=== PATIENT | female | born 1995 | race Caucasian/White ===

== ENCOUNTER 2021-03-01 17:31 | Observation (INO) | payer BC, OTHER, MEDICAID, SELFPAY ==
[2021-03-01 17:49] VITALS: BP 120/66; PULSE 96
[2021-03-01 17:56] VITALS: BMI 35.9
--- NOTE | 2021-03-01 17:57 | OBADM ---
This patient, Shanda Reyes, admitted to the OB room [facility] for observation. Patient/family oriented to hospital policies and general routines including ID bracelet, bed and alarms, visiting hours, pain management, procedures, bathroom and other care routines, personal items, smoking policy, room service/diet, and visiting hours. Patient/Family are encouraged to report perceived risks to care and to ask questions if they do not understand what they are told or what they should do.
[2021-03-01 18:45] VITALS: TEMP 36.6
[2021-03-01 18:57] VITALS: BP 110/69; PULSE 80
[2021-03-01] MEDS: DEXTROSE 5%/LACTATED RINGERS 1,000 ML 999 ML IV CONT (18:59)
[2021-03-01 19:06] LABS: Hemoglobin 11.6 g/dL (12.0-15.0); Mean Corpuscular HGB Conc 32.2 g/dl (32-36); Mean Corpuscular Hemoglobin 30.4 pg (26-34); Mean Corpuscular Volume 94.2 fl (80-100); Platelet Count Result 251 k/mm3 (150-375); Red Blood Count 3.82 M/mm3 (4.2-5.4); Red Cell Distribution Width 12.8 % (11.5-14.5); White Blood Count 11.6 K/mm3 (4.5-10.0)
[2021-03-01 19:12] LABS: Add Urine Microscopic? YES; Appearance Urine Cloudy (Clear); Bacteria Urine 1+ /hpf; Bilirubin Urine Negative (Negative); Blood Urine Negative (Negative); Color Urine Yellow (Yellow); Glucose Urine UA Negative (Negative); Ketones Urine Negative (Negative); Leukocyte Esterase Ur Trace LEU/UL (NEGATIVE); Mucus Urine Few /lpf; Nitrate Urine Negative (Negative); Protein Urine 1+ mg/dL (Negative); RBC Urine 0-2 /hpf (0-2); Specific Grav Ur 1.021 (1.001-1.035); Squamous Epithelial Cell Urine Moderate /hpf (Few); Urobilinogen Urine Negative mg/dL (<2.0); WBC Urine 0-3 /hpf (0-3)
[2021-03-01 19:26] LABS: Alanine Aminotransferase 18 U/L (4-35); Albumin Level 3.7 g/dL (3.5-5.1); Alkaline Phosphatase 64 U/L (38-126); Anion Gap 9 mmol/L (8-16); Aspartate Amino Transferase 20 U/L (14-36); Bilirubin,Total 0.3 mg/dL (0.2-1.3); Blood Urea Nitrogen 6 mg/dL (7-17); Calcium 9.7 mg/dL (8.4-10.2); Carbon Dioxide 22 mmol/L (22-30); Chloride 106 mmol/L (98-107); Estimated CRCL calculation 160 ml/min; Estimated Glomerular Filt Rate > 60; Glucose 73 mg/dL (65-105); Potassium 3.9 mmol/L (3.4-5.0); Sodium 137 mmol/L (137-145)
--- NOTE | 2021-03-03 07:53 | P.PNOB_ITS ---
OB - Triage/Final Diagnosis Visit Information Date of evaluation: 03/01/21 Reason for evaluation: threatened labor Comments/Additional reasons for admission: I have assessed the risk for this patient, Shanda Reyes, and determined that she would benefit from o bservation care. Evaluation Laboratory results: Laboratory Tests 03/01/21 03/01/21 03/01/21 18:55 18:55 18:55 WBC 11.6 H RBC 3.82 L Hgb 11.6 L Hct 36.0 L MCV 94.2 MCH 30.4 MCHC 32.2 RDW 12.8 Plt Count 251 MPV 11.0 H Sodium 137 Potassium 3.9 Chloride 106 Carbon Dioxide 22 Anion Gap 9 BUN 6 L Creatinine 0.50 L Estim Creat Clear Calc 160 Estimated GFR > 60 Glucose 73 Calcium 9.7 Total Bilirubin 0.3 AST 20 ALT 18 Alkaline Phosphatase 64 Total Protein 7.0 Albumin 3.7 Urine Color Yellow Urine Appearance Cloudy H Urine pH 6.0 Ur Specific [place] 1.021 Urine Protein 1+ H Urine Glucose (UA) Negative Urine Ketones Negative Ur Blood (Man) Negative Urine Nitrate Negative Urine Bilirubin Negative Urine Urobilinogen Negative Ur Leukocyte Esterase Trace H Urine RBC 0-2 Urine WBC 0-3 Ur Squamous Epith Cells Moderate H Urine Bacteria 1+ H Urine Mucus Few H
== END 2021-03-01 21:02 | disposition home or self-care (01) ==
PROVIDERS: Advanced Practice Midwife; Admitting Provider Obstetrics & Gynecology; Visit Provider Obstetrics & Gynecology
DX: O47.03 False labor before 37 completed weeks of gestation, third trimester (principal); Z3A.21 21 weeks gestation of pregnancy
CPT/HCPCS: 36415; 80053; 81001; 85027; 87086; 87088; G0378; G0379; J7121

== ENCOUNTER 2021-04-19 10:38 | Outpatient (RCR) | payer BC, OTHER, MEDICAID, SELFPAY ==
[2021-04-19 12:32] LABS: Hematocrit 33.5 % (37.0-47.0); Hemoglobin 11.1 g/dL (12.0-15.0)
[2021-04-19 12:46] LABS: Glucose 1 Hour PP 50gm Dose 161 mg/dL
[2021-04-19 13:26] LABS: HIV 1/2 Ab P24 Ag Result Negative (Negative)
[2021-04-19] MEDS: RHO(D) IMMUNE GLOBULIN 300 MCG/2 ML SYRINGE IM (17:28)
[2021-04-20 09:06] LABS: Rapid Plasma Reagin Non-Reactive (NonReactive)
== END 2021-07-18 23:59 | disposition home or self-care (01) ==
LOC: ANHLAB 10:38
PROVIDERS: Visit Provider Obstetrics & Gynecology
DX: Z29.13 Encounter for prophylactic Rho(D) immune globulin (principal); Z11.4 Encounter for screening for human immunodeficiency virus [HIV]; O36.0130 Maternal care for anti-D [Rh] antibodies, third trimester, not applicable or unspecified; Z3A.00 Weeks of gestation of pregnancy not specified
CPT/HCPCS: 36415; 81479; 82947; 85014; 85018; 85461; 86592; 86703; 86850; 86870; 86880; 86900; 86901; 86902; 86971; 90384; 96372; G0432; J2790

== ENCOUNTER 2021-05-01 13:26 | Observation (INO) | payer BC, OTHER, MEDICAID, SELFPAY ==
[2021-05-01 13:51] VITALS: BP 114/69; PULSE 107
[2021-05-01 14:00] VITALS: BP 114/74; PULSE 115
[2021-05-01 14:15] VITALS: BP 103/67; PULSE 107
[2021-05-01 14:31] VITALS: BMI 36.5
--- NOTE | 2021-05-21 10:07 | PM.OBTRLD ---
OB - Triage/Final Diagnosis Visit Information Comments/Additional reasons for admission: I have assessed the risk for this patient, Shanda Reyes, and determined that she would benefit from observation care. Final Diagnosis (1) False labor: Code(s): O47.9 - False labor, unspecified Status: Acute
== END 2021-05-01 14:42 | disposition home or self-care (01) ==
PROVIDERS: Admitting Provider Obstetrics & Gynecology; Visit Provider Obstetrics & Gynecology
DX: O47.03 False labor before 37 completed weeks of gestation, third trimester (principal); Z3A.30 30 weeks gestation of pregnancy
CPT/HCPCS: 84112; G0378; G0379

== ENCOUNTER 2021-05-24 14:07 | Outpatient (CLI) | payer BC, OTHER, MEDICAID, SELFPAY ==
[2021-05-24] VITALS (7 sets, daily range): BP systolic 107–114; BP diastolic 66–74; PULSE 96–113; RESP 16; TEMP 36.8
--- NOTE | 2021-05-24 15:19 | PC.NURSE ---
Lissa Quintana CNM returned page and informed of pt's symptoms, BP, reactive NST. Orders received.
[2021-05-24 15:58] LABS: Basophils Percent Auto 0.1 % (0.2-1.2); Eosinophils Percent Auto 0.1 % (0-4.4); Hematocrit 30.5 % (37.0-47.0); Immature Granulocyte Absolute 0.03 K/mm3 (0.00-0.031); Immature Granulocyte Percent A 0.3 % (0-0.5); Lymphocytes Absolute Auto 1.75 K/mm3 (0.9-3.2); Lymphocytes Percent Auto 17.5 % (18.3-44.2); Mean Corpuscular HGB Conc 32.8 g/dl (32-36); Mean Corpuscular Hemoglobin 29.9 pg (26-34); Mean Corpuscular Volume 91.3 fl (80-100); Mean Platelet Volume 10.5 fl (7.4-10.4); Monocytes Absolute Auto 0.6 K/mm3 (0.1-0.6); Monocytes Percent Auto 6.4 % (2.6-8.5); Neutrophils Absolute Auto 7.5 K/mm3 (1.3-6.7); Neutrophils Percent Auto 75.6 % (45.5-73.1); Platelet Count Result 234 k/mm3 (150-375); Red Blood Count 3.34 M/mm3 (4.2-5.4); Red Cell Distribution Width 12.3 % (11.5-14.5)
[2021-05-24 16:06] LABS: Add Urine Microscopic? YES; Appearance Urine Clear (Clear); Bacteria Urine Trace /hpf; Bilirubin Urine Negative (Negative); Blood Urine Negative (Negative); Color Urine Yellow (Yellow); Glucose Urine UA Negative (Negative); Ketones Urine Negative (Negative); Leukocyte Esterase Ur 3+ LEU/UL (Negative); Mucus Urine Rare /lpf; Nitrate Urine Negative (Negative); Protein Urine Negative (Negative); RBC Urine 0-2 /hpf (0-2); Specific Grav Ur 1.016 (1.001-1.035); Squamous Epithelial Cell Urine Few /hpf (Few); Urobilinogen Urine Negative mg/dL (<2.0)
[2021-05-24 16:07] LABS: Alanine Aminotransferase 19 U/L (4-35); Albumin Level 3.4 g/dL (3.5-5.1); Alkaline Phosphatase 120 U/L (38-126); Anion Gap 5 mmol/L (8-16); Aspartate Amino Transferase 19 U/L (14-36); Bilirubin,Total 0.4 mg/dL (0.2-1.3); Blood Urea Nitrogen 8 mg/dL (7-17); Calcium 8.7 mg/dL (8.4-10.2); Carbon Dioxide 21 mmol/L (22-30); Chloride 107 mmol/L (98-107); Estimated Glomerular Filt Rate > 60; Glucose 95 mg/dL (65-110); Potassium 3.7 mmol/L (3.4-5.0); Sodium 133 mmol/L (137-145); Uric Acid 4.3 mg/dL (2.5-7.5)
[2021-05-24 16:08] LABS: Creatinine Urine 102.9 mg/dL; Total Protein Urine Random 11 mg/dL; Ur Ttl Prot Creatinine Ratio 0.11 mg/mg (0-0.20)
--- NOTE | 2021-05-24 16:43 | PC.NURSE ---
Lissa Quintana CNM informed of lab results, updated on BP's. Orders for discharge received.
== END 2021-05-24 17:01 | disposition home or self-care (01) ==
LOC: ANHOBOP 14:16 → ANHOBPP 14:56
PROVIDERS: Advanced Practice Midwife; Visit Provider Obstetrics & Gynecology
DX: O16.9 Unspecified maternal hypertension, unspecified trimester (principal); Z3A.00 Weeks of gestation of pregnancy not specified
CPT/HCPCS: 36415; 59025; 80053; 81001; 82570; 84156; 84550; 85025; 87086; 87088; 99199

== ENCOUNTER 2021-06-27 17:15 | Inpatient (IN) | payer BC, OTHER, MEDICAID, SELFPAY ==
[2021-06-27] VITALS (14 sets, daily range): BP systolic 113–133; BP diastolic 73–84; PULSE 81–142; O2SAT 97–98; BMI 37.3
--- NOTE | 2021-06-27 19:34 | LDADM ---
This patient, Shanda Reyes, was admitted to Labor/Delivery/Recovery 109 on 06/27/21 at 17:15. Plans for labor, pain management and were discussed with patient. Patient/family oriented to hospital policies and general routines including ID bracelet, bed and alarms, visiting hours, pain management, procedures, bathroom and other care routines, personal items, smoking policy, room service/diet and guest tray routines, infant security routines, and visiting hours. Patient/Family are encouraged to report perceived risks to care and to ask questions if they do not understand what they are told or what they should do. See OBIX for further documentation.
[2021-06-27] MEDS: DINOPROSTONE 10 MG VAG INSERT VAGINAL (19:45)
[2021-06-27 19:54] LABS: Basophils Percent Auto 0.2 % (0.2-1.2); Eosinophils Percent Auto 0.1 % (0-4.4); Hematocrit 33.6 % (37.0-47.0); Immature Granulocyte Absolute 0.03 K/mm3 (0.00-0.031); Immature Granulocyte Percent A 0.3 % (0-0.5); Lymphocytes Absolute Auto 1.46 K/mm3 (0.9-3.2); Lymphocytes Percent Auto 13.3 % (18.3-44.2); Mean Corpuscular HGB Conc 32.7 g/dl (32-36); Mean Corpuscular Hemoglobin 29.8 pg (26-34); Mean Corpuscular Volume 91.1 fl (80-100); Mean Platelet Volume 11.3 fl (7.4-10.4); Monocytes Absolute Auto 0.6 K/mm3 (0.1-0.6); Neutrophils Absolute Auto 8.9 K/mm3 (1.3-6.7); Neutrophils Percent Auto 81.1 % (45.5-73.1); Platelet Count Result 240 k/mm3 (150-375); Red Blood Count 3.69 M/mm3 (4.2-5.4); Red Cell Distribution Width 12.9 % (11.5-14.5)
[2021-06-28] VITALS (85 sets, daily range): BP systolic 98–129; BP diastolic 58–88; PULSE 74–144; RESP 14–20; TEMP 36.1–36.6; O2SAT 97–100
[2021-06-28] MEDS: ONDANSETRON INJ 4 MG/2 ML VIAL IV PUSH ×2 (00:11→06:36)
[2021-06-28] MEDS: fentaNYL CITRATE INJ (*CRX) 100 MCG/2 ML VIAL 50 MCG IV PUSH (00:15)
[2021-06-28] MEDS: fentaNYL CITRATE INJ (*CRX) 100 MCG/2 ML VIAL IV PUSH ×2 (01:41→03:15)
[2021-06-28] MEDS: LACTATED RINGERS 1,000 ML 125 ML IV CONT ×2 (04:14→06:37)
--- NOTE | 2021-06-28 04:49 | WPDANESEPP ---
Anes - Eval Pre Procedure Procedure: Labor epidural Date/Time: 06/28/21 04:49 Surgeon: shaq Preop Diagnosis: Abd pain with contractions Pre Op Diagnosis: IOL Patient Data Age: 26 Gender: F Height: 1.63 m Weight: 98.5 kg Last Vital Signs Pulse 108 H 06/28/21 04:47 BP 109/71 06/28/21 04:47 Pulse Ox 99 06/28/21 04:47 Allergies Allergy/AdvReac Type Severity Reaction Status Date / Time erythromycin base Allergy Unknown Unknown Verified 06/14/21 15:19 lorazepam Allergy Unknown Other Verified 06/14/21 15:40 metoclopramide Allergy Unknown Other Verified 06/14/21 15:40 sumatriptan Allergy Unknown TACYCARDIA- Verified 06/14/21 15:19 -HR-200'S topiramate Allergy Unknown Other Verified 06/14/21 15:40 propranolol Allergy Hypotension Verified 06/14/21 15:19 Home Medications Medication Instructions Recorded Confirmed Type 1 tablet PO DAILY 05/01/21 05/01/21 History calcium carbonate [Tums] 200 mg PO QID PRN 05/01/21 05/01/21 History omeprazole 20 mg PO DAILY 05/01/21 05/01/21 History ondansetron HCl 8 mg PO Q8H PRN 05/01/21 05/01/21 History Laboratory Tests 06/27/21 06/27/21 06/27/21 19:43 19:43 19:43 WBC 11.0 K/mm3 H K/mm3 (4.5-10.0) RBC 3.69 M/mm3 L M/mm3 (4.2-5.4) Hgb 11.0 g/dL L g/dL (12.0-15.0) Hct 33.6 % L % (37.0-47.0) MCV 91.1 fl fl (80-100) MCH 29.8 pg pg (26-34) MCHC 32.7 g/dl g/dl (32-36) RDW 12.9 % % (11.5-14.5) Plt Count 240 k/mm3 k/mm3 (150-375) MPV 11.3 fl H fl (7.4-10.4) Immature Gran % (Auto) 0.3 % % (0-0.5) Neut % (Auto) 81.1 % H % (45.5-73.1) Lymph % (Auto) 13.3 % L % (18.3-44.2) [place] % (Auto) 5.0 % % (2.6-8.5) Eos % (Auto) 0.1 % % (0-4.4) Baso % (Auto) 0.2 % % (0.2-1.2) Lymph # (Auto) 1.46 K/mm3 K/mm3 (0.9-3.2) [place] # (Auto) 0.6 K/mm3 K/mm3 (0.1-0.6) Eos # (Auto) 0.0 K/mm3 K/mm3 (0-0.3) Baso # (Auto) 0.0 K/mm3 K/mm3 (0.0-0.1) Abs Immat Gran (auto) 0.03 K/mm3 K/mm3 (0.00-0.031) Absolute Neuts (auto) 8.9 K/mm3 H K/mm3 (1.3-6.7) Absolute Nucleated RBC 0.0 K/mm3 K/mm3 (0.0-0.012) Nucleated RBC % 0.0 % % (0.0-0.2) RPR Pending Blood Type A Negative Antibody Screen Negative Patient hx anesthesia problems: none Family hx anesthesia problems: none Results Review: All pre-operative results and documents have been reviewed as part of the pre-operative evaluation. [facility] Past Medical History Medical History Hx of supraventricular tachycardia Migraines Morbid obesity and not yet delivered Family History Family History Mother Patient's mother is in good health Anxiety Father Patient's father is in good health Family history of migraine headaches Social History Social History Smoking status: Never smoker Second hand tobacco smoke exposure: No Alcohol intake: never Substance use: never Spiritual care concerns: No Exam Day of Procedure 06/28/21 04:49 Patient weight: morbidly obese Airway: Mallampati scale class II Neurological: alert and oriented
--- NOTE | 2021-06-28 07:22 | WPDOBADMIT ---
Obstetrics - Admit Note Admission Note: record reviewed. No pertinent additions to the history and/or any subsequent changes in the physical findings that are not consistent with the expected course of the were found. MIL cholestatsis SVE /-2, AROM moderate amount of clear odorless fluid Additions to the history and/or subsequent changes in the physical findings follow. None.
[2021-06-28] MEDS: OXYTOCIN 30 UNITS/NS 500 ML 30 UNITS/500 ML BAG 999 UNITS IV CONT (07:50)
--- NOTE | 2021-06-28 07:59 | PM.OBPRVD ---
OB - Delivery Note Procedure Delivery date: 06/28/21 Procedure: vaginal delivery events: Labor Induction Intrapartal events: None Induction method: AROM and per misoprostol protocol Delivery augmentation: rupture of membranes Delivery monitor: external uterine Route of delivery: Laceration Description: None Specimen: Yes Quantitative Blood Loss (ml): 72 Anesthesia type: Epidural Disposition: floor Baby Date of : 06/28/21 Time of : 07:49 Weeks of gestation at delivery: 38 gender: Male Weight (pounds): 6 Weight (ounces): 14 presentation: vertex position: Right Occiput Anterior Placenta delivery description: Spontaneous cord vessel description: 3 Vessels, Nuchal Cord, Loose and Reduced score one minute: 6 score five minutes: 9 Narrative: mother and baby in stable condition
[2021-06-28] MEDS: ACETAMINOPHEN 325 MG TABLET 650 MG PO (09:06)
[2021-06-28] MEDS: LORATADINE 10 MG TABLET PO (09:06)
[2021-06-28] MEDS: WITCH HAZEL 40 PADS 1 PAD TOPICAL (09:59)
[2021-06-28] MEDS: BENZOCAINE 20% AER SPR (*SP) 56 GM CAN 1 SPRAY TOPICAL (09:59)
[2021-06-28 13:50] LABS: Rapid Plasma Reagin Non-Reactive (NonReactive)
[2021-06-28] MEDS: IBUPROFEN 600 MG TABLET PO (17:13)
[2021-06-28] MEDS: DOCUSATE SODIUM 100 MG CAPSULE PO (17:13)
[2021-06-29] MEDS: ACETAMINOPHEN 325 MG TABLET 650 MG PO (03:05)
[2021-06-29 05:43] LABS: Hemoglobin 8.9 g/dL (12.0-15.0)
[2021-06-29 07:45] VITALS: BP 109/79; PULSE 74; RESP 16; TEMP 36.3; O2SAT 100
--- NOTE | 2021-06-29 07:59 | P.PNOB_ITS ---
OB - PN: Subj Subjective Date/time seen: 06/29/21 07:59 Patient comments: no complaints baby status: doing well OB - PN: Obj Data Labs CBC & Chem 7: 06/29/21 03:10 Labs: Laboratory Results - last 24 hr 06/27/21 06/29/21 06/29/21 19:43 03:10 03:10 Hgb 8.9 L Hct 28.0 L RPR Non-reactive Blood Type A Negative Antibody Screen Negative OB - PN A/P Plan day: 1 Plan: routine care Time Spent With Patient Time: Total time spent is greater than 50% in coordination of care (as documented) at patient's floor/unit and/or counseling patient: Time with patient: less than 15 minutes Review of Systems Review of Systems: All systems reviewed & are unremarkable except as noted in HPI and below Exam Narrative: Fundus firm and vaginal flow controlled. No lower ext redness, war mth, or edema. Negative homans. Const: General: comfortable Chest: Breast/axilla inspection: normal inspection of the breasts Resp: Effort & Inspection: normal respiratory effort Cardio: Rate: regular rate GI: GI Palp: Yes Soft to palpation Psych: Appearance: grossly normal Affect: normal affect Attitude: cooperative Thought content: Yes Normal thought content present Judgement: Good judgement present (Psych)
--- NOTE | 2021-06-29 09:10 | WPDANLDPN2 ---
Anes-Prog Note L&D Date/Time: 06/29/21 09:10 Comfortable throughout: labor and delivery Neuraxial method: epidural Epidural/Spinal procedure site: clean & non-tender Neuro status: Neuro function grossly intact. Cardiovascular status: normal Respiratory status: normal Airway patency: baseline Mental status: baseline Post-Op hydration status: normal Vital Signs: Last Vital Signs Temp 36.3 C L 06/29/21 07:45 Pulse 74 06/29/21 07:45 Resp 16 06/29/21 07:45 BP 109/79 06/29/21 07:45 Pulse Ox 100 06/29/21 07:45 Pain score (VAS): 0 Post-procedural complaints: none Patient feedback: Patient satisfied with anesthetic care.
[2021-06-29] MEDS: DOCUSATE SODIUM 100 MG CAPSULE PO (09:12)
[2021-06-29] MEDS: IBUPROFEN 600 MG TABLET PO (09:12)
[2021-06-29] MEDS: POLYSACCHARIDE IRON COMPLEX 150 MG CAPSULE PO (09:13)
[2021-06-29] MEDS: RHO(D) IMMUNE GLOBULIN 300 MCG/2 ML SYRINGE IM (11:17)
[2021-06-30 10:31] VITALS: BP 113/74; PULSE 81; RESP 20; TEMP 36.8; O2SAT 100
--- NOTE | 2021-07-18 07:53 | PM.OBDSVD ---
DS: Admitting Diagnosis Discharge Date 06/29/21 Admitting Diagnosis Induction of labor DS: Discharge Diagnosis Discharge Diagnosis (1) Vaginal delivery: Code(s): O80 - Encounter for full-term uncomplicated delivery Status: Acute OB - DS: Summary OB Procedures : None OB Procedures Intrapartum: Spontaneous Vag Delivery OB Procedures: : None Time Spent with Patient Time attestation: Total time spent providing and/or coordinating discharge services: DS: Data Data Completed and Pending Completed studies during hospitalization: Pending at discharge 06/28/21 07:52 Surgical [PTH] Routine Discharge Plan Discharge Attending physician on discharge: Selene Quintana Consulting providers: Selene Quintana ; Shavon Copeland Discharging Clinician: kay Patient Disposition: Home, Self-Care Activity: pelvic rest Diet: as tolerated Discharge Instructions: Education: Mom and Baby Guide Given to: Mother Follow-Up: Call your delivering provider's office for an appointment to be seen in: 4 Weeks Mom and baby should come to the [facility] for the follow-up appointment. Appointment Date/Time: June 30, 2021 at 10:00 am What to expect at your follow-up visit: Blood Pressure Check Physical Assessment Call [phone] if you are unable to keep your appointment time. BREAST CARE: * Wear a snug supportive bra. *Bottle Feeding: * May apply ice packs Perineal Care * Until bleeding stops, use your joseph bottle after urinating * Change your pad frequently throughout the day * You may take sitz baths several times a day (fill your bathtub with warm water and soak for 20 minutes.) Do NOT bathe in the water * No tub baths until seen by your physician - You may shower ACTIVITY: * Rest as much as possible. * Do not exercise or lift anything heavier than your baby (such as laundry or other children.) * Avoid stairs or driving as much as possible. * Do not put anything into the vagina. No douching, tampons, or sexual activity until seen by physician. NOTIFY PHYSICIAN IF YOU HAVE ANY QUESTIONS OR IF ANY OF THE FOLLOWING SYMPTOMS OCCUR: * If your perineum becomes red, swollen, or more painful than what you have experienced in the hospital. * If your vaginal bleeding becomes foul smelling. * If your vaginal bleeding becomes more heavy than a period or if your bleeding changes from pink to bright red. However, you may pass an occasional walnut-sized clot once or twice for the first week . * If you experience a sharp, shooting pain in you calves. * If you discover a hard, reddened area on your breast or if you experience flu-like symptoms. *Temperature of 100.4 or higher DIET: * Eat regular, well-balanced meals. * Drink plenty of fluids daily. If , drink to thirst. Stand Alone Forms: General Discharge Information Follow-up/Referrals: Selene Quintana CNM [Certified Nurse Scrap Preparation Supervisor] - Discharge Medications: New polysaccharide iron complex 150 mg iron Capsule 150 mg PO BIDWM Qty: 60 RF: 0 Continued calcium carbonate [Tums] 200 mg calcium (500 mg) Tablet,Chewable 200 mg PO QID PRN (Reason: Heartburn) RF: 0 omeprazole 20 mg capsule,delayed release(DR/EC) 20 mg PO DAILY RF: 0 28-800 mg-mcg Tablet 1 tablet PO DAILY RF: 0 Discontinued ondansetron HCl 4 mg tablet 8 mg PO Q8H PRN (Reason: Nausea) RF: 0 Date of admission: 06/27/21 17:15 Admitting Provider: Shari Frey Attending physician on admission: Shari Frey Condition: Stable
== END 2021-06-29 11:45 | disposition home or self-care (01) | DRG 805 ==
LOC: ANHLDR 18:41 → ANHOB2 06-28 12:42
PROVIDERS: Advanced Practice Midwife; Admitting Provider Obstetrics & Gynecology; Visit Provider Obstetrics & Gynecology
DX: O36.8130 Decreased fetal movements, third trimester, not applicable or unspecified (principal); K83.1 Obstruction of bile duct; Z37.0 Single live birth; O26.62 Liver and biliary tract disorders in childbirth; O69.81X0 Labor and delivery complicated by cord around neck, without compression, not applicable or unspecified; O76 Abnormality in fetal heart rate and rhythm complicating labor and delivery; Z3A.38 38 weeks gestation of pregnancy
CPT/HCPCS: 36415; 85014; 85018; 85025; 85461; 86592; 86850; 86900; 86901; 88307; 90384; A9270; J2405; J2590; J2790; J2795; J3010; J7120